=== PATIENT | female | born 1990 | race Caucasian/White ===

== ENCOUNTER 2022-04-09 11:51 | Emergency (ER) | payer MEDICAID ==
[~2022-04-09] VITALS: Ht 147.3 cm; Wt 54.4 kg
[2022-04-09 11:56] VITALS: BP_SYST 133
--- NOTE | 2022-04-09 14:30 | NUR ---
DR DAVY ASCENCIO FOR ASSESMENT
[2022-04-09] MEDS ORDERED: IBUP-1969 PO (14:32)
--- NOTE | 2022-04-09 15:25 | NUR ---
Patient given written and verbal discharge instructions and verbalizes understanding. ER MD discussed with patient the results and treatment provided. Patient in stable condition. ID arm band removed. Rx of IBUPROFEN given. Patient educated on pain management and to follow up with PMD. Pain Scale . Opportunity for questions provided and answered. Medication side effect fact sheet provided.
== END 2022-04-09 15:25 | disposition home or self-care (01) ==
LOC: SED 11:51
DX: S00.80XA Unspecified superficial injury of other part of head, initial encounter (principal); Z79.899 Other long term (current) drug therapy; W10.9XXA Fall (on) (from) unspecified stairs and steps, initial encounter; Y93.89 Activity, other specified; Y92.89 Other specified places as the place of occurrence of the external cause; Y99.8 Other external cause status
CPT/HCPCS: 70486-TC; 76376; 99284